=== PATIENT | female | born 1955 | race Caucasian/White ===

== ENCOUNTER 2020-10-02 16:55 | Emergency (ER) | payer OTHER ==
[2020-10-02 17:15] VITALS: BP 135/75; PULSE 92; TEMP 98.4; BMI 36.7
== END 2020-10-02 17:55 | disposition home or self-care (01) ==
LOC: FER 16:55
DX: S83.92XA Sprain of unspecified site of left knee, initial encounter (principal)
CPT/HCPCS: 73562-TC-LT-FY; 99283-25

== ENCOUNTER 2022-02-05 12:31 | Day surgery (SDC) | payer OTHER, MEDICARE ==
[2022-02-05 13:23] VITALS: BMI 37.8
[2022-02-05 13:36] VITALS: RESP 18
[2022-02-05] MEDS ORDERED: PROPOFOL 40 ML ONE ×2 (13:42→13:58)
[2022-02-05 14:30] VITALS: BP 108/54; PULSE 83; TEMP 97.8
== END 2022-02-05 14:40 | disposition home or self-care (01) ==
LOC: FASU-ENDO 12:31
PROVIDERS: ATTEND Internal Medicine
PROC: 0DBL8ZX Excision of Transverse Colon, Via Natural or Artificial Opening Endoscopic, Diagnostic (ICD-10-PCS; 2022-02-05)
PROC: 0DBN8ZX Excision of Sigmoid Colon, Via Natural or Artificial Opening Endoscopic, Diagnostic (ICD-10-PCS; principal; 2022-02-05 13:45)
DX: Z12.11 Encounter for screening for malignant neoplasm of colon (principal); Z86.010 Personal history of colon polyps; D12.3 Benign neoplasm of transverse colon; D12.4 Benign neoplasm of descending colon; K57.30 Diverticulosis of large intestine without perforation or abscess without bleeding; K64.8 Other hemorrhoids
CPT/HCPCS: 82962; 88305-TC

== ENCOUNTER 2023-07-31 09:56 | Emergency (ER) | payer OTHER, MEDICARE ==
[2023-07-31 10:09] VITALS: BP 144/71; PULSE 84; RESP 16; TEMP 98; BMI 36.7
[2023-07-31 11:01] LABS: HEMATOCRIT 32.7 % (32.4-45.2); HEMOGLOBIN 10.8 G/dL (10.7-15.3); MCH 28.7 pg (25.7-33.7); MCHC 33.1 g/dl (32.0-36.0); MEAN CELL VOLUME 86.4 fl (80-96); MEAN PLT VOLUME 10.3 fl (7.5-11.1); PLATELET COUNT 214.2 10^3/uL (134-434); RBC 3.78 10^6/uL (3.60-5.2); RDW 15.1 % (11.6-15.6); WHITE BLOOD COUNT 10.4 10^3/uL (4.0-10.8)
[2023-07-31 11:11] LABS: PLATELET ESTIMATE ADEQUATE
[2023-07-31 11:12] LABS: ALBUMIN 3.8 g/dl (3.4-5.0); BILIRUBIN,TOTAL 0.3 mg/dl (0.2-1); CALCIUM 9.2 mg/dl (8.5-10.1); CREATININE 1.1 mg/dl (0.6-1.3); POTASSIUM 3.9 mmol/L (3.5-5.1); TOT PROT 6.8 g/dl (6.4-8.2); URIC ACID 10.9 mg/dl (2.6-7.2)
[2023-07-31] MEDS: KETOROLAC TROMETHAMINE 15 MG/ML VIAL IVPUSH ONE (11:40)
[2023-07-31] MEDS: COLCHICINE 0.6 MG CAP PO ONE (11:40)
[2023-07-31] MEDS: DALBAVANCIN HCL 1,500 MG in DEXTROSE 5%-WATER - 500 ML IVPB ONE (12:15)
[2023-07-31] MEDS ORDERED: COLCHICINE 0.6 MG TAB ONE (12:23)
[2023-07-31] MEDS ORDERED: KETOROLAC TROMETHAMINE 15 MG/ML VIAL ONE (12:23)
== END 2023-07-31 13:15 | disposition home or self-care (01) ==
LOC: FER 09:56
PROC: 3E03329 Introduction of Other Anti-infective into Peripheral Vein, Percutaneous Approach (ICD-10-PCS; principal; 2023-07-31)
PROC: 3E0333Z Introduction of Anti-inflammatory into Peripheral Vein, Percutaneous Approach (ICD-10-PCS; 2023-07-31)
DX: M79.675 Pain in left toe(s) (principal); M25.572 Pain in left ankle and joints of left foot
CPT/HCPCS: 36415; 73630-TC-LT; 80053; 84550; 85027; 87040; 99284-25; J0875